=== PATIENT | female | born 1985 | race Caucasian/White ===

== ENCOUNTER 2019-01-04 12:40 | Outpatient (CLI) | payer SELFPAY ==
--- NOTE | 2019-01-04 18:55 | Ultrasound Report ---
Reason: TEST POSITIVE Procedure Date: 01/04/2019 Accession Number: [id number] / [id number] Procedure: US - OB First Trimester CPT Code: FULL RESULT: EXAM: FIRST TRIMESTER OBSTETRIC ULTRASOUND (Less than 11 weeks) EXAM DATE: 01/04/2019 01:44 PM. CLINICAL HISTORY: Positive test. LMP: Unknown. (Order states LMP 09/23/2018. Patient states LMP in September, not August). COMPARISONS: None. TECHNIQUE: Transabdominal ultrasound examination with static image documentation. CLINICAL DATES: EGA 14 weeks 5 days with NIKOLAY 06/30/2019 based on LMP on exam order 09/23/2018. ASSESSMENT: Gestational Sac: Single intrauterine. Mean gestational sac diameter: 56 mm. Embryo: CRL (crown-rump length) 40 mm = 10 weeks 6 days. Cardiac activity: 161 beats per minute. Yolk sac: 6 mm. Amniotic fluid: Not accurately assessed at this gestational age. Early placenta: Posterior position. Other: No perigestational fluid collection demonstrated. MATERNAL STRUCTURES: Uterus: Anteverted. Unremarkable. Cervix: Closed. Right Ovary/Adnexa: The ovary measures 5.9 x 4.2 x 5.7 cm, volume 74 cc. Contains a simple cyst measuring 4.5 x 3.7 x 4.4 cm. Left Ovary/Adnexa: The ovary measures 2.3 x 1.2 x 1.6 cm, volume 2 cc. Unremarkable. Free Fluid: None. Other: None. IMPRESSION: 1. Single viable intrauterine at EGA 10 weeks 6 days with NIKOLAY 07/27/2019 based on crown-rump length, which is discordant with provided LMP on order. 2. Assigned dating is NIKOLAY 07/27/2019 based on the current ultrasound. RADIA
== END 2019-01-04 12:41 | disposition home or self-care (01) ==
LOC: DI 12:40
PROVIDERS: ATTEND Obstetrics & Gynecology
DX: Z32.01 Encounter for pregnancy test, result positive (principal)
CPT/HCPCS: 76801

== ENCOUNTER 2019-01-05 09:19 | Outpatient (CLI) | payer SELFPAY ==
[2019-01-05 17:09] LABS: MUDS CUTOFF CONCENTRATIONS CUTOFF CONC BELOW:
[2019-01-05 17:23] LABS: BILIRUBIN,URINE NEGATIVE (NEGATIVE); GLUCOSE, URINE (UA) NEGATIVE (NEGATIVE); KETONES,URINE (UA) NEGATIVE (NEGATIVE); LEUKOCYTE ESTERASE, URINE MODERATE (NEGATIVE); NITRITE,URINE NEGATIVE (NEGATIVE); OCCULT BLOOD,URINE NEGATIVE (NEGATIVE); PH,URINE 8.5 PH (5.0-7.5); PROTEIN,URINE TRACE mg/dL (NEGATIVE); UROBILINOGEN,URINE 0.2 (NORMAL) E.U./dL (NORMAL)
[2019-01-05 17:32] LABS: AMORPHOUS SEDIMENT,UR Moderate /LPF; BACTERIA,URINE Rare /HPF (None Seen); CLARITY,URINE CLOUDY (CLEAR); CRYSTALS,URINE 11-25 Triple Phos /LPF; RBC,URINE None Seen /HPF (0-5); SQUAMOUS EPITHELIAL CELL,UR FEW Squamous (<= Few)
[2019-01-05 17:33] LABS: AMPHETAMINE SCREEN,URINE NEGATIVE (NEGATIVE); BENZODIAZEPINES SCREEN, URINE NEGATIVE (NEGATIVE); COCAINE SCREEN URINE NEGATIVE (NEGATIVE); METHADONE SCREEN, URINE NEGATIVE (NEGATIVE); METHAMPHETAMINES SCREEN, URINE NEGATIVE (NEGATIVE); OPIATE SCREEN, URINE NEGATIVE (NEGATIVE); OXYCODONE SCREEN, URINE NEGATIVE (NEGATIVE); PROPOXYPHENE SCREEN, URINE NEGATIVE (NEGATIVE); TRICYCLIC ANTIDEPRESSANT,URINE NEGATIVE (NEGATIVE)
== END 2019-01-05 23:59 | disposition home or self-care (01) ==
LOC: LAB.R 09:19
PROVIDERS: ATTEND Nurse Practitioner Obstetrics & Gynecology
DX: Z36.89 Encounter for other specified antenatal screening (principal)
CPT/HCPCS: 80306; 81001; 81003

== ENCOUNTER 2019-02-04 08:00 | Outpatient (CLI) | payer SELFPAY ==
[2019-02-04 17:42] LABS: MUDS CUTOFF CONCENTRATIONS CUTOFF CONC BELOW:
[2019-02-04 17:55] LABS: BILIRUBIN,URINE NEGATIVE (NEGATIVE); GLUCOSE, URINE (UA) NEGATIVE (NEGATIVE); KETONES,URINE (UA) NEGATIVE (NEGATIVE); LEUKOCYTE ESTERASE, URINE NEGATIVE (NEGATIVE); NITRITE,URINE NEGATIVE (NEGATIVE); OCCULT BLOOD,URINE NEGATIVE (NEGATIVE); PH,URINE 7.5 PH (5.0-7.5); PROTEIN,URINE NEGATIVE (NEGATIVE); UROBILINOGEN,URINE 0.2 (NORMAL) E.U./dL (NORMAL)
[2019-02-04 18:12] LABS: AMORPHOUS SEDIMENT,UR Marked /LPF; AMPHETAMINE SCREEN,URINE NEGATIVE (NEGATIVE); BACTERIA,URINE None Seen /HPF (None Seen); BENZODIAZEPINES SCREEN, URINE NEGATIVE (NEGATIVE); CLARITY,URINE CLEAR (CLEAR); COCAINE SCREEN URINE NEGATIVE (NEGATIVE); METHAMPHETAMINES SCREEN, URINE NEGATIVE (NEGATIVE); OPIATE SCREEN, URINE NEGATIVE (NEGATIVE); RBC,URINE None Seen /HPF (0-5); SQUAMOUS EPITHELIAL CELL,UR MOD Squamous (<= Few)
[2019-02-04 18:13] LABS: METHADONE SCREEN, URINE NEGATIVE (NEGATIVE); OXYCODONE SCREEN, URINE NEGATIVE (NEGATIVE); PROPOXYPHENE SCREEN, URINE NEGATIVE (NEGATIVE); TRICYCLIC ANTIDEPRESSANT,URINE NEGATIVE (NEGATIVE)
[2019-02-04 21:53] LABS: TRICHOMONAS VAGINALIS DNA NEGATIVE (NEGATIVE)
== END 2019-02-04 23:59 | disposition home or self-care (01) ==
LOC: LAB.R 08:00
PROVIDERS: ATTEND Nurse Practitioner Obstetrics & Gynecology
DX: A56.2 Chlamydial infection of genitourinary tract, unspecified (principal); Z36.89 Encounter for other specified antenatal screening
CPT/HCPCS: 80306; 81001; 87086; 87491; 87591; 87661

== ENCOUNTER 2019-02-04 09:30 | Outpatient (CLI) | payer SELFPAY ==
[2019-02-04 10:00] LABS: BASOPHILS % (AUTO) 0.4 %; EOSINOPHILS # (AUTO) 0.2 10^3/uL (0.0-0.7); EOSINOPHILS % (AUTO) 2.5 %; HGB - HEMOGLOBIN 12.2 g/dL (12.0-16.0); LYMPHOCYTES # (AUTO) 1.2 10^3/uL (1.5-3.5); MEAN CORPUSCULAR HEMOGLOBIN 29.3 pg (27.0-31.0); MEAN CORPUSCULAR HGB CONC 32.5 g/dL (32.0-36.0); MEAN CORPUSCULAR VOLUME 90.1 fL (81.0-99.0); MEAN PLATELET VOLUME 11.2 fL (7.9-10.8); MONOCYTES # (AUTO) 0.4 10^3/uL (0.0-1.0); MONOCYTES % (AUTO) 4.9 %; NEUTROPHILS # (AUTO) 6.3 10^3/uL (1.5-6.6); NEUTROPHILS % (AUTO) 76.8 %; PLT - PLATELET COUNT 227 10^3/uL (130-450); RED BLOOD COUNT 4.16 10^6/uL (4.20-5.40); RED CELL DISTRIBUTION WIDTH 13.3 % (12.0-15.0); WHITE BLOOD COUNT 8.2 x10^3/uL (4.8-10.8)
[2019-02-05 10:24] LABS: HIV AG/AB 4TH GEN NON-REACTIVE (NON-REACTIVE)
[2019-02-05 11:31] LABS: HEPATITIS B SURFACE ANTIGEN NON-REACTIVE (NON-REACTIVE)
[2019-02-05 11:42] LABS: HEPATITIS C ANTIBODY NON-REACTIVE (NON-REACTIVE)
== END 2019-02-04 09:31 | disposition home or self-care (01) ==
LOC: LAB 09:30
PROVIDERS: ATTEND Nurse Practitioner Obstetrics & Gynecology
DX: Z36.89 Encounter for other specified antenatal screening (principal)
CPT/HCPCS: 36415; 81599; 85025; 86592; 86762; 86803; 86850; 86900; 86901; 87340; 87389

== ENCOUNTER 2019-02-09 00:03 | Emergency (ER) | payer SELFPAY ==
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
[2019-02-09 00:32] LABS: BILIRUBIN,URINE NEGATIVE (NEGATIVE); GLUCOSE, URINE (UA) NEGATIVE (NEGATIVE); KETONES,URINE (UA) NEGATIVE (NEGATIVE); LEUKOCYTE ESTERASE, URINE SMALL (NEGATIVE); NITRITE,URINE NEGATIVE (NEGATIVE); OCCULT BLOOD,URINE NEGATIVE (NEGATIVE); PROTEIN,URINE NEGATIVE (NEGATIVE); UROBILINOGEN,URINE 0.2 (NORMAL) E.U./dL (NORMAL)
[2019-02-09 00:45] LABS: BACTERIA,URINE Rare /HPF (None Seen); CLARITY,URINE CLEAR (CLEAR); RBC,URINE None Seen /HPF (0-5); SQUAMOUS EPITHELIAL CELL,UR MOD Squamous (<= Few)
[2019-02-09 01:37] VITALS: BP 126/81
--- NOTE | 2019-02-09 02:07 | Ultrasound Report ---
Reason: abdominal pain Procedure Date: 02/09/2019 Accession Number: [id number] / [id number] Procedure: US - OB 14+ Weeks CPT Code: FULL RESULT: EXAM: LIMITED OBSTETRICAL ULTRASOUND EXAM DATE: 02/09/2019 12:53 AM. CLINICAL HISTORY: Abdominal pain. Check viability. COMPARISON: None. TECHNIQUE: Real-time sonographic evaluation of the fetus performed by the high school science tutor. Multiple lead customer service representative static images were saved for review. DATING: Established EGA 16 weeks 0 days with NIKOLAY 07/27/2019. GENERAL EVALUATION Lopez . Cardiac activity: 176 bpm. movement: Visualized. Presentation: Cephalic/variable. Placenta: Posterior position. Amniotic fluid: Subjectively normal. MVP 4.9 cm. MEASUREMENTS BPD 3.3 cm, 16 weeks 2 days HC 11.8 cm, 15 weeks 6 days AC 9.2 cm, 15 weeks 2 days FL 1.9 cm, 15 weeks 5 days EFW 129 g MATERNAL STRUCTURES No adnexal abnormalities seen. IMPRESSION: 1. Lopez live intrauterine with gestational age 16 weeks 0 days based on prior US. 2. The fetus measures 15 weeks 6 days by today's composite measurements, showing appropriate interval growth. RADIA
== END 2019-02-09 02:30 | disposition left against medical advice (07) ==
LOC: ED 00:03
DX: O99.89 Other specified diseases and conditions complicating pregnancy, childbirth and the puerperium (principal); R10.2 Pelvic and perineal pain; R10.31 Right lower quadrant pain; R10.32 Left lower quadrant pain; Z3A.16 16 weeks gestation of pregnancy
CPT/HCPCS: 76805; 81001; 81003; 87086; 99282; 99284

== ENCOUNTER 2019-03-09 08:27 | Outpatient (CLI) | payer SELFPAY ==
[2019-03-09 21:36] LABS: TRICHOMONAS VAGINALIS DNA NEGATIVE (NEGATIVE)
== END 2019-03-09 23:59 | disposition home or self-care (01) ==
LOC: LAB.R 08:27
PROVIDERS: ATTEND Nurse Practitioner Obstetrics & Gynecology
DX: A56.2 Chlamydial infection of genitourinary tract, unspecified (principal)
CPT/HCPCS: 87491; 87591; 87661

== ENCOUNTER 2019-03-13 08:30 | Outpatient (CLI) | payer SELFPAY ==
--- NOTE | 2019-03-14 16:09 | Ultrasound Report ---
Reason: ENCOUNTER FOR OTHER SPECIFIED SCREENING Procedure Date: 03/13/2019 Accession Number: [id number] / [id number] Procedure: US - OB Detailed Eval CPT Code: FULL RESULT: EXAM: COMPLETE OBSTETRICAL ULTRASOUND EXAM DATE: 03/13/2019 10:47 AM. CLINICAL HISTORY: anatomic survey. COMPARISON: OB 14+ WEEKS 02/09/2019 12:53 AM. TECHNIQUE: Real-time sonographic evaluation of the fetus performed by the application architect. Multiple wireless sales representative static images were saved for review. DATING: Established EGA 20 weeks 4 days with NIKOLAY 07/27/2019 based on physician stated dating. EGA 19 weeks 5 days with NIKOLAY 08/02/2019 based on the current ultrasound. GENERAL EVALUATION Lopez . Cardiac activity: 153 bpm. movement: Visualized. Presentation: Variable/breech. Placenta: Posterior position. No evidence for previa. Umbilical cord: 3 vessel cord. Central placental cord origin. Amniotic fluid: Subjectively normal. MVP 3.1 cm. OLINDA 10.6 cm. BIOMETRY Bi-Parietal Diameter (BPD): 4.51 cm, 19 weeks 4 days. Head Circumference (HC): 17.15 cm, 19 weeks 5 days. Abdominal Circumference (AC): 14.79 cm, 20 weeks 0 days. Femur Length (FL): 3.31 cm, 20 weeks 2 days. Estimated Weight: 334 g, 23rd percentile for 20 weeks 4 days. ANATOMY The intracranial structures, profile, face/nose/lips, spine, 4 chamber heart and outflow tracts, stomach, abdominal wall and cord insertion, diaphragm, kidneys, bladder, and extremities were visualized and demonstrate no abnormality. Nuchal fold measures 5 mm. Unable to visualize gender due to positioning/patient body habitus. MATERNAL STRUCTURES Uterus: Unremarkable. Cervix: Long and closed. Transabdominal length 3.7 cm. Right ovary/adnexa: There is a dominant right ovarian follicle measuring 1.5 x 1.5 x 1.6 cm. The right ovary/adnexa are otherwise unremarkable. Left ovary/adnexa: Unremarkable. Free fluid: None. IMPRESSION: 1. Lopez live intrauterine with gestational age 20 weeks 4 days based on physician stated dating. 2. Estimated weight is within expected limits for assigned dating. 3. Normal anatomic survey. No anatomic abnormalities are detected at this time. RADIA
== END 2019-03-13 08:31 | disposition home or self-care (01) ==
LOC: DI 08:30
PROVIDERS: ATTEND Nurse Practitioner Obstetrics & Gynecology
DX: Z36.89 Encounter for other specified antenatal screening (principal)
CPT/HCPCS: 76811

== ENCOUNTER 2019-05-21 09:36 | Outpatient (CLI) | payer SELFPAY ==
[2019-05-21 11:22] LABS: HGB - HEMOGLOBIN 11.7 g/dL (12.0-16.0); MEAN CORPUSCULAR HEMOGLOBIN 28.9 pg (27.0-31.0); MEAN CORPUSCULAR HGB CONC 32.1 g/dL (32.0-36.0); MEAN CORPUSCULAR VOLUME 89.9 fL (81.0-99.0); MEAN PLATELET VOLUME 11.7 fL (7.9-10.8); RED BLOOD COUNT 4.05 10^6/uL (4.20-5.40); RED CELL DISTRIBUTION WIDTH 13.3 % (12.0-15.0); WHITE BLOOD COUNT 9.1 x10^3/uL (4.8-10.8)
== END 2019-05-21 09:37 | disposition home or self-care (01) ==
LOC: LAB 09:36
PROVIDERS: ATTEND Nurse Practitioner Obstetrics & Gynecology
DX: Z36.89 Encounter for other specified antenatal screening (principal)
CPT/HCPCS: 36415; 82950; 85027; 86850

== ENCOUNTER 2019-06-30 08:00 | Outpatient (CLI) | payer SELFPAY ==
[2019-07-01 20:01] LABS: TRICHOMONAS VAGINALIS DNA NEGATIVE (NEGATIVE)
== END 2019-06-30 23:59 | disposition home or self-care (01) ==
LOC: LAB.R 08:00
PROVIDERS: ATTEND Nurse Practitioner Obstetrics & Gynecology
DX: Z36.85 Encounter for antenatal screening for Streptococcus B (principal)
CPT/HCPCS: 87491; 87591; 87661; 87797

== ENCOUNTER 2019-07-18 07:16 | Inpatient (IN) | payer SELFPAY ==
[2019-07-18 08:14] LABS: RUPTURE OF MEMBRANES PLUS POSITIVE (NEGATIVE)
[2019-07-18] MEDS ORDERED: SODIUM CHLORIDE FLUSH 0.9% 10 ML SYRINGE IVP PRN (08:22)
[2019-07-18] MEDS ORDERED: SODIUM CHLORIDE FLUSH 0.9% 10 ML SYRINGE ONE (08:47)
[2019-07-18] MEDS ORDERED: SODIUM CHLORIDE FLUSH 0.9% 10 ML SYRINGE IVP SCH (09:00)
[2019-07-18 09:06] LABS: BASOPHILS % (AUTO) 0.1 %; EOSINOPHILS # (AUTO) 0.2 10^3/uL (0.0-0.7); EOSINOPHILS % (AUTO) 3.2 %; LYMPHOCYTES # (AUTO) 1.3 10^3/uL (1.5-3.5); LYMPHOCYTES % (AUTO) 18.8 %; MEAN CORPUSCULAR HEMOGLOBIN 28.8 pg (27.0-31.0); MEAN CORPUSCULAR HGB CONC 33.2 g/dL (32.0-36.0); MEAN CORPUSCULAR VOLUME 86.6 fL (81.0-99.0); MEAN PLATELET VOLUME 11.5 fL (7.9-10.8); MONOCYTES # (AUTO) 0.3 10^3/uL (0.0-1.0); MONOCYTES % (AUTO) 3.6 %; NEUTROPHILS # (AUTO) 5.1 10^3/uL (1.5-6.6); PLT - PLATELET COUNT 247 10^3/uL (130-450); RED BLOOD COUNT 4.17 10^6/uL (4.20-5.40); RED CELL DISTRIBUTION WIDTH 13.5 % (12.0-15.0); WHITE BLOOD COUNT 6.9 x10^3/uL (4.8-10.8)
--- NOTE | 2019-07-18 09:50 | HISTORY & PHYSICAL EXAMINATION ---
Admit History - Visit Reason Visit Reason: Membranes rupture - : 2 Parity: 1 Premature: 0 Ectopic: 0 : 0 Care: positive: [facility] Risk/History: positive: None Complications This : positive: None Smoking Status: Never smoker - Mother's Labs Mother's Blood Type: positive: O Mother's RH: positive: Positive GBS: positive: Group B Step Negative Rubella Status: positive: Non-immune Meds/Allgy - Home Medications Home Medications: Ambulatory Orders Medication Instructions Recorded Confirmed Pnv No.95/Ferrous Fum/Folic AC 1 tab PO DAILY 02/09/19 02/09/19 [ Vitamins Tablet] - Allergies Allergies/Adverse Reactions: Allergies Allergy/AdvReac Type Severity Reaction Status Date / Time No Known Drug Allergies Allergy Verified 02/09/19 00:06 Review of Systems - Constitutional Constitutional: denies: Fatigue, Fever, Chills, Malaise - Eyes Eyes: denies: Blurred vision, Spots in vision, Dipolpia - Cardiovascular Cariovascular: denies: Irregular heart rate, Chest pain, Edema - Respiratory Respiratory: denies: SOB at rest - Gastrointestinal Gastrointestinal: denies: Constipation, Diarrhea - Integumentary Integumentary: denies: Rash, Pruritis - Neurological Neurological: denies: Headache Physical - Abdominal Exam Vital Signs: Temp Pulse Resp BP Pulse Ox 36.5 C 99 18 150/80 H 99 07/18/19 09:26 07/18/19 09:26 07/18/19 09:26 07/18/19 09:26 07/18/19 07:35 Uterine Resting Tone: positive: Soft - Monitoring Heart Rate Baseline: 135 Strip Review: positive: Category I - Presentation Presentation: positive: Vertex - Vaginal Exam Membranes: positive: Membranes ruptured Dilation (in cm): 4 Effacement (%): 75 Station: positive: -1 Cervical Position: positive: Midposition - Speculum Exam Speculum Exam Performed: positive: No Findings: positive: Gross leak Plan for Labor - Plan For Labor I expect patient to be DC'd or transferred within 96 hours.: Yes Plan for Labor: HPI: This 33yo @ 38.5wks gestation by 10.6wk U/S presented on 07/18/2019 @ 0700 with c/o vaginal leakage of fluid whish she describes as pink tinged in color. She denies contractions and reports +FM. She has been a patient of [facility] through the duration of her which has been complicated only by her positive chlamydia screen at her initial visit. Her test of cure was negative and repeat GC/CT in the third trimester was also negative. Upon arrival her cervix was 4/75/-1, midposition, medium consistency, vertex. ROM plus was positive. Patient was admitted to [facility] for active management. Dating criteria: Initial ultrasound @ 10.6wks gestation disconcordant with LMP dating and gives NIKOLAY 07/27/2019 Serial exams - agree OB Hx: G1: 08/29/2018; 39wk; ; epidural; [facility], Male, 7lbs 10oz G2: Current Medications: PNV Allergies: NKDA PMHx: obesity Surgical Hx: none Social Hx: never smoker, no ETOH of IVDA. Self pay - social work consult upon admit Family Hx: breast cancer - mother; diabetes - mother labs: O positive; antibody negative Rubella non-immune -MMR GC/CT positive at initial visit - LYNETTE negative [place] neg - female Glucola 75 GBS Negative Third trimester GC/CT negative Immunizations: Tdap 05/08/2019 Influenza declined Ultrasounds: 01/04/2019 @ 10.6wks disconcordant with LMP dating FAS 03/13/2019 WNL, 3VC. Posterior placenta, no previa. Size c/w dating Physical Exam: Normocephalic, atraumatic Heart RRR w/o M/G/R Lungs CTAB Abdomen gravid, soft, nontender EFW 3200g SVE 4/75/-1, vertex. SROM x 4 hours FHR baseline 135, moderate variability, + accels, no decels No contractions via tocometery Bilateral LE's no edema Assessment: 33yo @ 38.5wks gestation by 10.6wk U/S SROM x 4 hours GBS neg Plan: Admit for active management Initiate pitocin with titration per protocol for augmentation Continuous monitoring Epidural per maternal request Anticipate . REviewed plan of care with patient who verbalized understanding and agrees to above plan. She denies further questions or concerns at this time.
[2019-07-18] MEDS ORDERED: OXYTOCIN/DEXTROSE 5 % 30 UNIT/500 ML BAG IV SCH (10:00)
[2019-07-18] MEDS: LACTATED RINGERS 1,000 ML IV SCH ×2 (10:15→15:51)
[2019-07-18] MEDS ORDERED: miSOPROStoL 200 MCG TABLET ONE (11:04)
[2019-07-18] MEDS ORDERED: LIDOCAINE-MPF 1% 30 ML VIAL ONE (11:04)
[2019-07-18] MEDS ORDERED: ROPIVACAINE 0.2% 0 MG/0 ML BAG EP ONE (11:40)
[2019-07-18] MEDS ORDERED: BUPIVACAINE 0.25% PF 10 ML VIAL ONE (11:43)
[2019-07-18] MEDS ORDERED: HYDROCORTISONE 1% CREAM 28 GM TUBE PR PRN (12:05)
[2019-07-18] MEDS ORDERED: WITCH HAZEL/GLYCERIN 1 PAD TOP PRN (12:05)
[2019-07-18] MEDS ORDERED: OXYTOCIN/DEXTROSE 5 % 30 UNIT/500 ML BAG IV PRN (12:07)
--- NOTE | 2019-07-18 12:13 | DELIVERY NOTE ---
Delivery Note - Labor Labor: positive: Spontaneous, Augmented by oxytocin - Delivery Method Delivery Method: positive: Spontaneous vaginal delivery - Presentation Presentation: positive: Vertex, BRUNILDA - left occiput anterior - Nuchal Cord Nuchal Cord: positive: None - Amniotic Fluid Description Amniotic Fluid Description: positive: Clear - Episiotomy Type Episiotomy Type: positive: None - Laceration Laceration: positive: None - Delivery Outcome Delivery Outcome: positive: Livebirth - Aldrich Aldrich: positive: Placed in direct skin contact with mother, Stimulated, Warmed, Sabula used Aldrich sex: positive: Male - Cord Cord: positive: 3 vessels - Placenta Placenta: positive: Intact, Spontaneous - Estimated Blood Loss Estimated Blood Loss (in cc): 250 - Post Delivery Events Post Delivery Events: positive: No post delivery events - Delivery Comments (Free Text/Narrative) Delivery Comments (Free Text/Narrative): Labor: This 33yo @ 38.5wks gestation by 10.6wk U/S presented on 07/18/2019 @ approximately 0710 with c/o vaginal leakage clear fluid which began at 0630. Her ROM plus was positive and she was admitted to [facility] for active management. Upon arrival her cervix was 4/75/-1, vertex and she was not feeling contractions nor were contractions appreciated via tocometry. FHR pattern demonstrated Category I pattern throughout. Pitocin administered via IV for augmentation for a maximum infusion rate of 2mU/mL. The patient progressed to c/c/+2 at 1150. : Normal of a viable male infant on 07/18/2019 @ 1155. No nuchal cord. The was placed on maternal abdomen, stimulated, dried, and placed skin to skin. 's were 9/9 at 1 and 5 min respectively. The umbilical cord was allowed to stop pulsating at which time it was doubly clamped by CNM and cut by FOB. Cord blood was obtained. 3VC. Pitocin administered via IV for hemostasis. Placenta delivered spontaneously and intact at 1202. EBL 250mL. Fourth stage: Uterine fundus firm and there is no excessive bleeding. The perineum, vagina, and cervix were inspected and found to be intact. Skin to skin contact initiated. Family bonding well. Both mother and baby were left in stable condition.
[2019-07-18] MEDS: IBUPROFEN 800 MG TABLET PO SCH (15:50)
[2019-07-18] MEDS: ACETAMINOPHEN 500 MG TABLET PO SCH (15:50)
--- NOTE | 2019-07-18 19:26 | CONSULTATION NOTE ---
Consultation Report: Called to place regional anesthesia for active labor. On arrival to L&D unit, patient was dilated to 9.5cm per RN. Set up to place labor spinal and prior to start of procedure, patient's labor progressed. CNM at bedside and with imminent delivery, it was decided to not proceed with spinal.
[2019-07-18] MEDS: DOCUSATE SODIUM 100 MG CAPSULE PO SCH (21:52)
[2019-07-19] MEDS: ACETAMINOPHEN 500 MG TABLET PO SCH ×2 (00:42→09:24)
[2019-07-19] MEDS: IBUPROFEN 800 MG TABLET PO SCH ×3 (00:42→12:28)
[2019-07-19] MEDS: LACTATED RINGERS 1,000 ML IV SCH (00:43)
--- NOTE | 2019-07-19 09:33 | Discharge Plan ---
Discharge Plan Problem Reviewed?: Yes Disposition: Home, Self Care Condition: Good Diet: Regular Activity Restrictions: No Restrictions Shower Restrictions: No Weight Bearing: Full Weight No Smoking: If you smoke, Please STOP! Call for help. Follow-up with: Milana Adler CNM, ARNP [Primary Care Provider] -
--- NOTE | 2019-07-19 09:35 | PROVIDER PROGRESS NOTE ---
Subjective - Subjective Subjective: FINAL PROGRESS NOTE: S: BOnding well with baby. without difficulty, Pain well controlled with oral medications. Bleeding decreased and is light. Desires to be discharged home today. A: 33yo -->P2 PPD#1 s/p TSVD of viable male infant O: BP 110/65, HR 86, T 38.6, P 16 Heart RRR w/o M/G/R, lungs CTAB, abdomen soft and nontender with fundus firm at U. Perineum intact. Bilateral LE's no edema. P: Reviewed pp self care and warning s/sx. Advised continuation of PNV while . Advised continuation of ibuprofen and tylenol OTC PRN pain. F/u in 3 weeks for routine pp visit or sooner PRN. Pt and present at the bedside verbalized understanding and agrees to above plan. She denies further questions or concerns at this time. Objective - Vital Signs/Intake & Output Vital Signs: Vital Signs x48h Temp Pulse Resp BP Pulse Ox 07/19/19 08:16 36.8 C 86 16 110/65 07/19/19 03:32 36.8 C 85 16 120/76 100 Intake & Output: Intake & Output 07/16/19 07/17/19 07/18/19 07/19/19 23:59 23:59 23:59 23:59 Intake Total 1837.5 1162.5 Output Total 150 Balance 1687.5 1162.5 - Lab Results Fish Bones: 07/18/19 08:37
[2019-07-19] MEDS: DOCUSATE SODIUM 100 MG CAPSULE PO SCH (09:42)
[2019-07-19] MEDS ORDERED: MEASLES,MUMPS & RUBELLA VACC 0.5 ML VIAL SUBQ ONE (10:40)
[2019-07-19 12:20] VITALS: BP 142/75
--- NOTE | 2019-07-19 12:32 | Labor Flowsheet ---
Labor Flowsheet Datetime Report Generated by CPN: 07/19/2019 12:32 Datetime: 07/19/2019 12:04 VITAL SIGNS NBP Sys/Patricia/Mean (mmHg): 142 : 75 : 85 Pulse: 92 LaborFlag: Labor Datetime: 07/18/2019 11:49 SpO2 (%): 98 Datetime: 07/18/2019 11:46 Pain Location: Abdomen; Back; Perineum Pain Coping: Breathing Through Contractions; Writhing Pain Assessment Comments: not able to sit still for epidural or INT VAGINAL EXAM Dilatation (cm): 10.0 Effacement (%): 100 Station: 2 Exam by: Belinda Datetime: 07/18/2019 11:45 ANESTHESIA Anesthesia Comments: afian SALESPERSON [employer] at bedside unable to place spinal because delivery pt unable to sit still Datetime: 07/18/2019 11:41 Monitor Interventions for FHR: Ultrasound Adjusted Comments: maternal pulse mom moving around in bed Datetime: 07/18/2019 11:40 Vaginal Bleeding: Normal Show Cervix, Consistency: Soft Cervix, Position: Anterior COMMUNICATION Communication: Call/Page Placed to Provider Provider Notified (Name): Vitor Notification Reason: Status Update Communication Comments: come for delivery Datetime: 07/18/2019 11:34 Patient Position/Activity: Left Lateral Datetime: 07/18/2019 11:31 Actions for Decelerations: Provider Notified Datetime: 07/18/2019 11:18 PATIENT CARE IV/Blood Work: IV Bolus Started I/O Interventions: Up to BR Consults: Anesthesia Datetime: 07/18/2019 11:02 MEDICATIONS Pitocin (milliunits): Increased to @ 2 Datetime: 07/18/2019 11:00 UTERINE ACTIVITY Monitor Mode: External Monitor Interventions for UA: [place] Adjusted Frequency (min): 2-4 Quality: Moderate Duration (sec): 35-45 Pattern: Normal: <= 5 Contractions in 10 Minutes Resting Tone (Palpate): Relaxed Pitocin Checklist: At Least 1 Acceleration of 15 bpm x 15 Seconds in 30 Minutes or Adequate Variabi lity; No More than 5 Uterine Contractions in 10 Minutes for any 20 Minute Interval Datetime: 07/18/2019 10:30 MATERNAL ASSESSMENT Level of Consciousness: Fully Conscious DTR's/Clonus: DTRs 1+; No Clonus Headache: Denies Breath Sounds, Left: Clear and Equal Breath Sounds, Right: Clear and Equal Nausea/Vomiting: Denies RUQ Epigastric Pain: Denies TEACHING Instructional Method: Verbal Plan of Care: Plan of Care Discussed; Induction Unit Routine: [place] to Room Labor/Induction: Augmentation; Induction Datetime: 07/18/2019 10:15 ASSESSMENT A Monitor Mode: External US FHR Baseline Rate : 140 FHR Baseline Changes: Bradycardia Variability: Moderate 6-25 bpm Decelerations: None Category: Category I PAIN Pain Scale: 0 Pain Presence: None/Denies Pain Type: Cramping Datetime: 07/18/2019 09:27 Temperature (C): 36.5 Datetime: 07/18/2019 09:00 Stage of : Labor Accelerations: 15X15
--- NOTE | 2019-07-19 17:12 | DISCHARGE SUMMARY ---
Physician: KATHERINE Hagen DATE OF ADMISSION: 07/18/2019 DATE OF DISCHARGE: 07/19/2019 DIAGNOSES ON ADMISSION 1. A 33-year-old G2, P1-0-0-1 at 38.5 weeks gestation. 2. Spontaneous rupture of membranes. 3. Group B Streptococcus negative. DIAGNOSES ON DISCHARGE 1. A 33-year-old G2, P2-0-0-2, status post spontaneous vaginal delivery on 07/18/2019. 2. . 3. Normal recovery. HISTORY OF PRESENT ILLNESS: She is a patient of [facility] who presented on 07/18/2019 at approximately 7:10 with complaints of vagi nal leakage of fluid. Her ROM plus was positive and she was [facility] a ctive management. Upon arrival, her cervix was noted to be 4 cm dilated, 75% effaced, -1 station, ve rtex position. Pitocin administered via IV for augmentation for a maximum infusion rate of 2 milliun its per mL. The patient progressed to complete, complete at 11:50. She spontaneously delivered a vi able male infant on 07/18/2019 at 11:55. Apgars were 9 and 9 at one and five minutes respectively. EBL 250 mL The perineum, vagina and cervix were inspected and noted to be intact. She has been doing well in her course. She is ambulating and tolerating a regular diet. She is urinating without difficulty, and her lochia is normal. Her pain is well controlled with oral medications. She will be discharged home today on day #1 with instructions to continue h er vitamin while , and to continue taking ibuprofen and Tylenol [id number] as needed for pain management. She intends to follow up with myself at [facility] in 3 weeks for routine visit or sooner if needed. She has been given precautions to call if she has any worsening fevers, chills, abdominal pain, increased bleeding or foul-smelling vaginal lochia. TD: 07/19/2019 09:41
== END 2019-07-19 12:20 | disposition home or self-care (01) | DRG 807 ==
LOC: WFO 07:16 → FBP 07:20 → WFO 08:21 → FBP 08:22
PROVIDERS: ADMIT Nurse Practitioner Obstetrics & Gynecology; ATTEND Nurse Practitioner Obstetrics & Gynecology
PROC: 10E0XZZ Delivery of Products of Conception, External Approach (ICD-10-PCS; principal; 2019-07-18)
DX: O80 Encounter for full-term uncomplicated delivery (principal); Z37.0 Single live birth; Z3A.38 38 weeks gestation of pregnancy; Z86.19 Personal history of other infectious and parasitic diseases; Z23 Encounter for immunization
CPT/HCPCS: 36415; 84112; 85025; A9270; J7120; 99212